=== PATIENT | female | born 1940 | race Caucasian/White ===

== ENCOUNTER 2025-05-04 10:27 | Emergency (ER) | payer MEDICARE, BC, SELFPAY ==
[2025-05-04] VITALS (18 sets, daily range): BP systolic 103–156; BP diastolic 46–140; PULSE 60–91; RESP 15–26; TEMP 36.6; O2SAT 92–100
--- NOTE | 2025-05-04 11:10 | CRLHL7_ITS ---
For Patients: As a result of the Century Cures Act, medical imaging exams and procedure reports are released immediately into your electronic medical record. You may view this report before your referring provider. If you have questions, please contact your health care provider. Indication: Knee pain. Injury Technique: Three views of the left knee were acquired Comparison: There are no prior studies for comparison of this side. Findings: As described below Impression: 1. No definite acute fracture, dislocation or destructive process. 2. Decreased bone mineral density. 3. 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 4. Large joint effusion. 5. Atherosclerotic vascular calcifications Dictated by Alex Nicole MD @ 05/04/2025 12:48:48 PM (Electronically Signed)
--- NOTE | 2025-05-04 11:10 | CRLHL7_ITS ---
For Patients: As a result of the Century Cures Act, medical imaging exams and procedure reports are released immediately into your electronic medical record. You may view this report before your referring provider. If you have questions, please contact your health care provider. INDICATION: Left ankle pain after fall COMPARISON: None. TECHNIQUE: Three radiographic view(s) of the left ankle. FINDINGS: No evident acute displaced fracture. Diffuse osseous demineralization. Normal alignment of the tibiotalar joint. Mild degenerative change of the tibiotalar joint. Nonspecific severe arthropathy of the subtalar joint characterized by extensive cortical irregularity. Moderate to severe degenerative change of the calcaneonavicular joint. At least moderate degenerative change in the partially imaged midfoot. Small posterior and large plantar calcaneal enthesophyte. Vascular calcifications. IMPRESSION: 1. No evident acute displaced fracture. 2. Nonspecific severe arthropathy of the subtalar joint. 3. Degenerative changes as detailed above. Dictated by Rashi Davis MD @ 05/04/2025 12:51:10 PM (Electronically Signed)
--- NOTE | 2025-05-04 11:10 | CRLHL7_ITS ---
For Patients: As a result of the Cures Act, medical imaging exams and procedure reports are released immediately into your electronic medical record. You may view this report before your referring provider. If you have questions, please contact your health care provider. INDICATION: Trauma. TECHNIQUE: CT cervical spine without contrast. COMPARISON: None. FINDINGS: Vertebrae: Mild anterolisthesis of C4-5 C6-7 and C7-T1. Minimal offset of the left lateral masses of C1-2 is likely positional. No fracture Discs and facet joints: Moderate to severe C5-6 and moderate C4-5 degenerative disc disease Extraspinal findings: Prevertebral soft tissues, visualized airway, and visualized lungs are unremarkable. IMPRESSION: Examination limited by motion. No acute fracture seen of the cervical spine. Please note that all CT scans at this facility use dose modulation, iterative reconstruction, and/or weight-based dosing when appropriate to reduce radiation dose to as low as reasonably achievable. Dictated by Emmanuel Mathew MD @ 05/04/2025 1:15:24 PM (Electronically Signed)
--- NOTE | 2025-05-04 11:10 | XR_ITS ---
Patient: TRISTA ZAMUDIO Facility:?[facility] Patient ID:?[id number] Site Patient ID:?[id number]. Site :?[id number] Study:?XRay-Knee Right 3V-05/04/2025 12:35:48 PM Ordering Physician:Mago Pena Final Report: INDICATION: Knee pain after fall TECHNIQUE: X-ray right knee three views COMPARISON: Bilateral knee x-ray 08/07/2023 FINDINGS: Osseous structures: There is no acute fracture or dislocation of the right knee. There are severe tricompartmental degenerative changes, including severe joint space loss, subchondral sclerosis and marginal osteophyte formation. On the frontal view, there is a diagonally oriented sclerotic line arising from the medial tibial plateau. This may reflect a chronic insufficiency fracture and is unchanged compared to the prior radiograph. Soft tissues: There is prepatellar soft tissue swelling. No knee joint effusion. IMPRESSION: 1. no acute fracture or dislocation of the right knee. 2. Severe tricompartmental degenerative changes. 3. 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 Dictated by Tesfaye Hathaway MD @ 05/04/2025 12:46:39 PM (Electronic Signature)
--- NOTE | 2025-05-04 11:11 | CRLHL7_ITS ---
For Patients: As a result of the Century Cures Act, medical imaging exams and procedure reports are released immediately into your electronic medical record. You may view this report before your referring provider. If you have questions, please contact your health care provider. INDICATION: Fall hitting head. TECHNIQUE: CT head without contrast. COMPARISON: None. FINDINGS: Examination limited by motion. Hemorrhage within the left basal ganglia measuring 2.9 x 2.1 centimeters with extension into the left lateral ventricle and to a lesser extent the right lateral ventricle and occipital horns. No other definite hemorrhage seen given limitations. There is mild periventricular white matter hypoattenuation with subtle asymmetric hypoattenuation within the left centrum semiovale which could represent subacute infarct. There is no significant midline shift with mild mass effect from the intraventricular hemorrhage. Prominent ventricles without overt hydrocephalus. Sulci are present. There is torre-white differentiation. The basilar cisterns are patent. No displaced calvarial fracture seen IMPRESSION: 1. Limited examination due to motion. Left basal ganglia and intraventricular hemorrhages as above. Neurosurgical consultation recommended. Case discussed with Dr. Sumner at approximately 1 p.m. on 05/04/2025. 2. Subtle asymmetric left periventricular white matter hypoattenuation could represent subacute infarct. Recommend close attention on follow-up. Please note that all CT scans at this facility use dose modulation, iterative reconstruction, and/or weight-based dosing when appropriate to reduce radiation dose to as low as reasonably achievable. Dictated by Emmanuel Mathew MD @ 05/04/2025 1:10:27 PM (Electronically Signed)
--- NOTE | 2025-05-04 11:11 | CRLHL7_ITS ---
For Patients: As a result of the 21st Century Cures Act, medical imaging exams and procedure reports are released immediately into your electronic medical record. You may view this report before your referring provider. If you have questions, please contact your health care provider. INDICATION: Trauma. Low back pain. Anterior chest pain. TECHNIQUE: CT chest, abdomen and pelvis acquired with 79 cc Isovue 370 IV contrast. COMPARISON: None. FINDINGS: CHEST: Cardiovascular structures: Heart size is normal. Mild coronary artery calcifications. Thoracic aorta is normal in caliber. Pulmonary arterial enlargement. Mediastinum and abbe: Small hiatal hernia. No mass or adenopathy. Lungs and pleura: Scattered atelectasis. No suspicious nodules, infiltrates, or effusions. No pneumothorax Chest wall and axilla: No mass or adenopathy. Bones: No acute fracture or dislocation. ABDOMEN AND PELVIS: Liver: Unremarkable. No sign of acute injury. Gallbladder and bile ducts: Cholelithiasis without acute cholecystitis. Pancreas: Unremarkable. Spleen: Focal indeterminate 2.6 centimeter superior splenic subcapsular fluid collection. Otherwise, no sign of acute injury. Adrenal glands: Unremarkable. Kidneys: Unremarkable. GI tract: Colonic diverticulosis without diverticulitis. No bowel obstruction. Normal appendix. Vascular structures: Unremarkable. Mesenteric arteries are patent. Lymph nodes: Unremarkable. Miscellaneous: Unremarkable. No free air or significant free fluid. Pelvic Organs: Moderately distended bladder.. Bones: No acute fracture or dislocation. IMPRESSION: Indeterminate focal 2.6 centimeter superior splenic subcapsular fluid collection, possibly age indeterminate subcapsular hematoma. Recommend correlation with point tenderness. Otherwise, no acute intrathoracic or intra-abdominal/pelvic abnormality. Chronic findings as above. Please note that all CT scans at this facility use dose modulation, iterative reconstruction, and/or weight-based dosing when appropriate to reduce radiation dose to as low as reasonably achievable. Dictated by Gómez Almanza MD @ 05/04/2025 1:16:09 PM (Electronically Signed)
--- NOTE | 2025-05-04 11:15 | ED.FALL ---
HPI - Fall General Chief Complaint: Fall/Minor Trauma Stated Complaint: Fall Time Seen by Provider: 05/04/25 10:53 Source: patient and family Mode of arrival: EMS Limitations: no limitations History of Present Illness HPI Narrative: Patient is an 84-year-old female presenting to the emergency department after a fall. She does home alone in family last saw her yesterday around noon. They state a neighbor called in this morning because the patient's lytes were on all night. They went to check on her at around 09:30 and they state when they arrived she was on the floor next to her recliner with vomit near her and was incontinent of urine. They states she was though answering all questions appropriately and acting at her mental baseline. EMS was called. Patient is not on any blood thinners. Patient's only complaint is that she feels called and that she had some low back pain when she sat up. She states he is asymptomatic when lying down. Patient has some confusion the family states this is her baseline. Is able to walk around at home. When asking what happened the patient states she slipped next to her recliner and hit the left side of her face. This is consistent with the story she told her family. She denies any chest pain, lightheadedness, dizziness, weakness, numbness, abdominal pain, diarrhea, constipation, fevers, chills. No other concerns noted at this time. Related Data Home Medications ?Medication ?Instructions ?Recorded ?Confirmed enalapril 5 mg-hydrochlorothiazide 1 tab PO DAILY 05/04/25 05/04/25 12.5 mg tablet Allergies Allergy/AdvReac Type Severity Reaction Status Date / Time No Known Drug Allergies Allergy Verified 05/04/25 11:01 Review of Systems Status of ROS: Reports: 10 or more systems reviewed and unremarkable except as noted in History and below Exam Narrative: Exam Narrative: Const: Well-nourished, Well-developed, in mild distress Eyes: PERRL, no conjunctival injection, and symmetrical lids HENT: Atraumatic external nose and ears. Moist mucous membranes. Neck: Symmetric, trachea midline, No thyromegaly. CVS: RRR, No murmurs or gallops. Peripheral pulses 2+ and equal in all extremities RESP: Unlabored respiratory effort. Clear to auscultation bilaterally. GI: Nontender/Nondistended, No rebound or guarding. MSK:Extremities w/o deformity, Normal Active ROM, mild midline neck pain. Mild anterior lower chest pain bilaterally. Mild bilateral knee tenderness diffusely. Mild left ankle tenderness. Skin: Warm, Dry. No rashes or lesions. Neuro: Normal Muscle tone, No focal neurological deficits. Psych: Awake, Alert, & Oriented x3. Appropriate mood and affect. Const: Vital Signs, click to edit/add: Vital Signs - 24 hr 05/04/25 10:48 Temperature 97.9 F Pulse Rate [Pulse Oximeter] 60 Respiratory Rate 16 Blood Pressure [Le ft Upper Arm] 127/92 H Pulse Oximetry 97 Oxygen Delivery Me thod Room Air Course Vital Signs Vital signs: Initial Vital Signs Temperature 97.9 F 05/04/25 10:48 Temperature Source Temporal Artery Scan 05/04/25 10:48 Pulse Rate 60 05/04/25 10:48 Respiratory Rate 16 05/04/25 10:48 Blood Pressure 127/92 H 05/04/25 10:48 Blood Pressure Mean 103 05/04/25 10:48 Blood Pressure Position Supine 05/04/25 10:48 Pulse Oximetry 97 05/04/25 10:48 Oxygen Delivery Method Room Air 05/04/25 10:48 Vital Signs Temperature 97.9 F 05/04/25 10:48 Pulse Rate 60 05/04/25 10:48 Respiratory Rate 16 05/04/25 10:48 Blood Pressure 127/92 H 05/04/25 10:48 Pulse Oximetry 97 05/04/25 10:48 Oxygen Delivery Method Room Air 05/04/25 10:48 Temperature 97.9 F 05/04/25 10:48 Pulse Rate 60 05/04/25 10:48 Respiratory Rate 16 05/04/25 10:48 Blood Pressure 127/92 H 05/04/25 10:48 Pulse Oximetry 97 05/04/25 10:48 Oxygen Delivery Method Room Air 05/04/25 10:48 MDM - Fall MDM Narrative Medical decision making narrative: Patient is an 84-year-old female brought in by ambulance after a fall. Based on description it sounds like it was a mechanical fall the concerning she was down all night all do further workup to make sure there is no other abnormalities. Will do an EKG and troponin to the for cardiac abnormalities. Or order a CK to look for possible rhabdomyolysis. Will check urinalysis for possible UTI leading to her fall. Will check her electrolytes with magnesium and CBC. Will also check liver panel. CBC order also. She is having pain to her bilateral knees diffusely and right ankle. X-rays will be ordered. Does not having any further extremity pain. Concerned she had her head will order a head and cervical spine CT. Will also do chest abdomen pelvis she is having some lower back pain and chest pain. Patient' CBC shows no concerning findings. She does have a slightly elevated white count 14.68. Could be related to stress reaction pain on ground will try for any signs of infection. CBC shows no concerning abnormalities. Liver panel shows no concerning findings. Her high sensitivity troponin is 32.4. This may be related from being on the ground all night but will trend. Total creatinine kinase is elevated 362. Viral swabs are negative. She is having intermittent episodes worse she is at her mental baseline but then will become confused again per The family. Patient is otherwise doing well this time with stable vital signs. CT scan of the head interpreted by myself the radiologist immediately after was done show signs of intraventricular hemorrhage. There does appears to be some mild midline shift in the anterior aspect. I immediately spoke to family about transfer and they are agreeable. I initially spoke to [facility] who agreed to take her for transfer but then patient family preferred [facility]. I spoke to Dr. Nick of their ICU who accepted her for immediate transfer. CT scan cervical spine interpreted by myself and the radiologist showed no acute concerning abnormalities. CT scan of chest abdomen pelvis shows an indeterminate 2.6 cm superior splenic subcapsular fluid collection. Unclear how old. She she was having no tenderness noted on my initial exam but I did check again specifically looking for pain around the spleen and she has no tenderness. X-rays interpreted by myself and the radiologist showed no concerning abnormalities other than some effusions in the knees.. EKG interpreted by myself shows no acute concerning abnormalities. Lab Data Labs: Lab Results 05/04/25 05/04/25 05/04/25 Range/Units 11:13 11:30 11:40 WBC 14.68 H (4.50-11.00) K/uL RBC 4.46 (4.00-5.20) m/uL Hgb 13.6 (12.0-16.0) gm/dL Hct 41.5 (33.0-51.0) % MCV 93 (80-100) fL MCH 31 (26-34) pg MCHC 33 (32-36) gm/dL RDW Coeff of Linda 12.1 (11.5-15.5) % Plt Count 350 (140-440) K/uL Neut % (Auto) 93.0 H (42.0-72.0) % Lymph % (Auto) 2.2 L (20-44) % [place] % (Auto) 4.6 (0.0-11.0) % Eos % (Auto) 0.0 (0.0-7.0) % Baso % (Auto) 0.1 (0.0-3.0) % Neut # (Auto) 13.70 H (1.7-7.0) K/uL Lymph # (Auto) 0.30 L (0.90-2.90) K/uL [place] # (Auto) 0.70 (0.00-0.90) K/UL Eos # (Auto) 0.00 (0.00-0.50) K/uL Baso # (Auto) 0.00 (0.00-0.30) K/uL Abs Immat Gran (auto) 0.00 (0.00-0.30) K/uL Imm/Tot Granulo (auto) 0.1 % Sodium 135 (135-149) mmol/L Potassium 4.1 (3.6-5.1) mmol/L Chloride 99 (96-114) mmol/L Carbon Dioxide 25 (20-32) mmol/L Anion Gap 11 (7-15) mEq/L BUN 31 H (7-30) mg/dL Creatinine 0.8 (0.5-1.5) mg/dL Estimated GFR 72 ml/min Glucose 141 H (60-115) mg/dL Calcium 9.5 (8.4-10.6) mg/dL Magnesium 2.1 (1.5-2.6) mg/dL Total Bilirubin 0.6 (0.1-1.5) mg/dL Direct Bilirubin 0.1 (0.0-0.5) mg/dL AST 29 (12-35) U/L ALT 17 (4-35) U/L Alkaline Phosphatase 64 (40-150) U/L Total Creatine Kinase 362 H (41-117) U/L POC Troponin I High Sensi 32.4 H* (2.9-13.0) pg/mL Total Protein 6.6 (6.0-8.3) g/dL Albumin 4.1 (3.3-5.0) g/dL SARS-CoV-2 (PCR) Negative SARS-CoV-2 (Negative) Influenza Type A (PCR) Negative PCR FLU A (Negative) Influenza Type B (PCR) Negative PCR FLU B (Negative) RSV (PCR) Negative PCR RSV (Negative) POC Creatinine 0.9 (0.6-1.3) mg/dl Imaging Data CT scan - head: Attestation: I have reviewed the pertinent imaging results. Radiologist's impression: 1. Limited examination due to motion. Left basal ganglia and intraventricular hemorrhages as above. Neurosurgical consultation recommended. Case discussed with Dr. Sumner at approximately 1 p.m. on 05/04/2025. 2. Subtle asymmetric left periventricular white matter hypoattenuation could represent subacute infarct. Recommend close attention on follow-up. Please note that all CT scans at this facility use dose modulation, iterative reconstruction, and/or weight-based dosing when appropriate to reduce radiation dose to as low as reasonably achievable. Dictated by Emmanuel Mathew MD @ 05/04/2025 1:10:[address]: Attestation: I have reviewed the pertinent imaging results. Radiologist's impression: Examination limited by motion. No acute fracture seen of the cervical spine. Please note that all CT scans at this facility use dose modulation, iterative reconstruction, and/or weight-based dosing when appropriate to reduce radiation dose to as low as reasonably achievable. Dictated by Emmanuel Mathew MD @ 05/04/2025 1:15:[address] Chest/Ab/Pelvis: Attestation: I have reviewed the pertinent imaging results. Radiologist's impression: Indeterminate focal 2.6 centimeter superior splenic subcapsular fluid collection, possibly age indeterminate subcapsular hematoma. Recommend correlation with point tenderness. Otherwise, no acute intrathoracic or intra-abdominal/pelvic abnormality. Chronic findings as above. Please note that all CT scans at this facility use dose modulation, iterative reconstruction, and/or weight-based dosing when appropriate to reduce radiation dose to as low as reasonably achievable. Dictated by Gómez Almanza MD @ 05/04/2025 1:16:09 PM X-ray right knee: Attestation: I have reviewed the pertinent imaging results. Radiologist's impression: 1. no acute fracture or dislocation of the right knee. 2. Severe tricompartmental degenerative changes. 3. 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 Dictated by Tesfaye Hathaway MD @ 05/04/2025 12:46:39 PM X-ray left knee: Attestation: I have reviewed the pertinent imaging results. Radiologist's impression: 1. No definite acute fracture, dislocation or destructive process. 2. Decreased bone mineral density. 3. 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 4. Large joint effusion. 5. Atherosclerotic vascular calcifications Dictated by Alex Nicole MD @ 05/04/2025 12:48:48 PM X-ray left ankle: Attestation: I have reviewed the pertinent imaging results. Radiologist's impression: 1. No evident acute displaced fracture. 2. Nonspecific severe arthropathy of the subtalar joint. 3. Degenerative changes as detailed above. Dictated by Rashi Davis MD @ 05/04/2025 12:51:10 PM ECG Data Attestation: I personally reviewed and interpreted this ECG as follows: Prior ECG tracings: not available for review Interpretation: Normal sinus rhythm with a rate of 65 beats per minute, normal intervals, normal axis, no ST or T-wave abnormalities. Critical Care Time Critical Care Time Critical Care Time: Yes Attestation: The patient required my highest level preparedness to intervene emergently and I personally spent this critical care time directly and personally managing the patient. This critical care time included: Obtaining a history; Examining the patient; Pulse oximetry; Ordering and reviewing of studies; Arranging urgent treatment with development of a management plan; Evaluation of patients response to treatment; Frequent reassessment discussions with other providers. This critical care time was performed to assess and manage the high probability of imminent life-threatening deterioration that could result in multiorgan failure. It was exclusive of separate billable procedures and treating other patients and teaching time. Total Critical Care Time in Minutes: 43 Discharge Plan Discharge Prescriptions: No Action enalapril-hydrochlorothiazide 5-12.5 mg tablet 1 tab PO DAILY Follow Up/Referrals: Provider,Not a Local [Primary Care Provider, Family Practice]
--- NOTE | 2025-05-04 11:25 | RESP.RT ---
Placed nasal/nares pulse oximeter senors, to monitor, 97% on room air. Patient hands are chilly, no pulse oxymeter order picker/assembler by senors.
[2025-05-04 11:40] LABS: Hematocrit* 41.5 % (33.0-51.0); Hemoglobin* 13.6 gm/dL (12.0-16.0); Immature Granulocytes Pct Auto 0.1 %; Mean Corpuscular HGB Conc 33 gm/dL (32-36); Mean Corpuscular Hemoglobin 31 pg (26-34); Mean Corpuscular Volume 93 fL (80-100); RDW Coefficient of Variation % 12.1 % (11.5-15.5); Red Blood Count* 4.46 m/uL (4.00-5.20); White Blood Count* 14.68 K/uL (4.50-11.00)
[2025-05-04 11:45] LABS: Immature Granulocytes Abs Auto 0.00 K/uL (0.00-0.30); Lymphocytes Absolute Auto 0.30 K/uL (0.90-2.90); Slide Review Reflex No
[2025-05-04 11:53] LABS: Albumin* 4.1 g/dL (3.3-5.0); Chloride* 99 mmol/L (96-114); Potassium* 4.1 mmol/L (3.6-5.1); Sodium* 135 mmol/L (135-149)
[2025-05-04 11:55] LABS: Blood Urea Nitrogen* 31 mg/dL (7-30); Creatinine* 0.8 mg/dL (0.5-1.5); Estimated Glomerular Filt Rate 72 ml/min
[2025-05-04 11:56] LABS: Alanine Aminotransferase* 17 U/L (4-35); Alkaline Phosphatase* 64 U/L (40-150); Anion Gap 11 mEq/L (7-15); Aspartate Amino Transferase* 29 U/L (12-35); Bilirubin Direct* 0.1 mg/dL (0.0-0.5); Bilirubin Total* 0.6 mg/dL (0.1-1.5); Calcium* 9.5 mg/dL (8.4-10.6); Carbon Dioxide* 25 mmol/L (20-32); Creatine Kinase* 362 U/L (41-117); Glucose* 141 mg/dL (60-115); Total Protein* 6.6 g/dL (6.0-8.3)
[2025-05-04 12:08] LABS: Creatinine, Point-of-Care* 0.9 mg/dl (0.6-1.3)
[2025-05-04 12:24] LABS: PCR FLU A Negative PCR FLU A (Negative); PCR FLU B Negative PCR FLU B (Negative); PCR RSV Negative PCR RSV (Negative); SARS PCR* Negative SARS-CoV-2 (Negative)
[2025-05-04] MEDS: LEVETIRACETAM 1,000 mg/100 ml INFUSION 1000 MG IVPB (13:49)
[2025-05-04 14:24] LABS: Appearance Urine Clear (Clear)
== END 2025-05-04 14:53 | disposition short-term general hospital (02) ==
PROVIDERS: Emergency Provider Student in an Organized Health Care Education/Training Program
DX: I61.5 Nontraumatic intracerebral hemorrhage, intraventricular (principal); M25.572 Pain in left ankle and joints of left foot; M25.562 Pain in left knee
CPT/HCPCS: 36415; 70450; 71260; 72125; 73562; 73610; 74177; 80048; 80076; 81001; 82550; 82565; 83735; 84484; 85025; 87631; 93005; 96365; 99285; 99291; J1953; Q9967

== ENCOUNTER 2025-05-04 14:36 | Outpatient (CLI) | payer MEDICARE, BC, SELFPAY | END 2025-05-04 14:37 | disposition home or self-care (01) | LOC: AMB 05-09 15:47 | PROVIDERS: Visit Provider Family Medicine | DX: I61.9 Nontraumatic intracerebral hemorrhage, unspecified (principal) | CPT/HCPCS: A0425; A0427 ==